=== PATIENT | male | born 1940 | race Caucasian/White ===

== ENCOUNTER 2024-05-10 13:47 | Observation (INO) | payer MEDICARE, OTHER ==
[~2024-05-10] VITALS: Ht 175.3 cm; Wt 100.5 kg
[~2024-05-10 13:47] MED LIST: AMOX TR-K CLV1 EAC1 PO; DOXYCYCLINE HY100 M3 PO; ESTER-C 1,0001 EACH PO; GLIPIZIDE ER10 MG PO; HYDROCHLOROTH12.5 M1 PO; LEXAPRO10 MG PO; LISINOPRIL20 MG PO; LOVASTATIN20 MG PO; METFORMIN HCL500 MG PO; TOPROL XL25 MG PO; [UNRECOGNIZED DRUG - SUPPLY] PO
[2024-05-10] MEDS ORDERED: ACETAMINOPHEN 500 MG TAB PO ONE (14:30)
[2024-05-10] MEDS ORDERED: SODIUM CHLORIDE 0.9% 1,000 ML IV ONE (14:30)
[2024-05-10 14:49] LABS: ALBUMIN 3.3 g/dL (3.4-5.0); ANION GAP 13.9 (7-21); BILIRUBIN, TOTAL 1.5 ng/dL (0.2-1.0); BUN/CREATININE RATIO 10.86 (6.0-28.6); CALCIUM 8.8 mg/dL (8.5-10.1); CREATININE, SERUM 1.84 mg/dL (0.70-1.30); POTASSIUM 4.9 mmol/L (3.5-5.1); PROTEIN, TOTAL 6.6 g/dL (6.4-8.2)
[2024-05-10 14:52] LABS: HEMOGLOBIN 9.6 g/dL (12.0-18.0); MCH 35.8 (27-36); MCHC 33.3 g/dl (30-36); MCV 107.6 fl (81-99); PLATELET COUNT 544 K/uL (140-440); RBC 2.69 M/ul (4.3-5.7); RDW 18.3 (10.5-15.0)
[2024-05-10 15:08] LABS: BILIRUBIN, URINE NEGATIVE (negative); BLOOD/HGB, URINE TRACE-I (Negative); KETONE, URINE NEGATIVE (Negative); LEUK ESTERASE, URINE LARGE (negative); NITRITE, URINE POSITIVE (negative)
[2024-05-10 15:12] LABS: LACTIC ACID, BLOOD 2.7 mmol/L (0.4-2.0)
[2024-05-10] MEDS ORDERED: CEFTRIAXONE/SODIUM CHLORIDE 2 GM/100 ML PIGGYBACK IV ONE (15:15)
[2024-05-10 15:16] LABS: BASOPHILS, MANUAL DIFF 2; EOSINOPHILS, MANUAL DIFF 1; LYMPHOCYTES, MANUAL DIFF 4; MONOCYTES, MANUAL DIFF 12; NEUTROPHILS, MANUAL DIFF 81
[2024-05-10 15:18] LABS: WHITE BLOOD CELLS, URINE 21-40 /HPF (0-5)
[2024-05-10 15:19] LABS: BACTERIA, URINE 3+ /hpf (negative); CASTS, URINE NONE SEEN \\lpf; COLLECTION TYPE, URINE CLEAN CATCH; CRYSTALS, URINE AMORPHOUS URATES 1+ (0-1+); EPITHELIAL CELLS, URINE NONE SEEN /lpf (0-1+); REFLEX CULTURE, URINE Yes (No)
[2024-05-10 15:35] LABS: INFLUENZA B NAA NEGATIVE (NEGATIVE); RESPIRATORY SYNCYTIAL VIR NAA NEGATIVE (NEGATIVE)
[2024-05-10] MEDS ORDERED: SODIUM CHLORIDE 0.9% 1,000 ML IV PRN (15:45)
[2024-05-10] MEDS ORDERED: AZITHROMYCIN 500 MG in DEXTROSE 5% 250 ML IV SCH (16:36)
[2024-05-10] MEDS ORDERED: ENOXAPARIN SODIUM 40 MG/0.4 ML SYR SUB-Q SCH (16:37)
[2024-05-10] MEDS ORDERED: PANTOPRAZOLE SODIUM 40 MG TABEC PO SCH (16:37)
[2024-05-10] MEDS ORDERED: SODIUM CHLORIDE 0.9% 1,000 ML IV SCH (16:45)
[2024-05-10] MEDS ORDERED: DEXTROSE 5% 1,000 ML IV PRN (16:45)
[2024-05-10] MEDS ORDERED: DEXTROSE 50% 50 ML SYR IV PRN ×2 (16:45)
[2024-05-10] MEDS ORDERED: IBLOOD GLUCOSE TEST STRIP 1 EA TEST XX PRN (16:45)
[2024-05-10] MEDS ORDERED: GLUCAGON,HUMAN RECOMBINANT 1 MG/ML VIAL SUB-Q PRN (16:45)
[2024-05-10] MEDS ORDERED: ondansetron HCL 4 MG/2 ML VIAL IV PRN (16:45)
[2024-05-10] MEDS ORDERED: PROCHLORPERAZINE EDISYLATE 10 MG/2 ML VIAL IV PRN (16:45)
[2024-05-10 16:56] VITALS: BP 111/65
[2024-05-10] MEDS ORDERED: INSULIN LISPRO 100 UNIT/ML ML SUB-Q SCH (17:00)
[2024-05-10] MEDS ORDERED: IBLOOD GLUCOSE TEST STRIP 1 EA TEST VI SCH (17:00)
[2024-05-10 18:24] VITALS: BP 107/65
[2024-05-10 20:27] VITALS: BP 120/63
[2024-05-11 01:16] VITALS: BP 113/60
[2024-05-11 05:20] VITALS: BP 117/67
[2024-05-11 05:50] LABS: HEMATOCRIT 26.2 % (35.0-50.0); HEMOGLOBIN 8.9 g/dL (12.0-18.0); MCH 36.6 (27-36); MCV 107.7 fl (81-99); PLATELET COUNT 498 K/uL (140-440); RBC 2.43 M/ul (4.3-5.7); RDW 18.4 (10.5-15.0)
[2024-05-11 05:56] VITALS: BP 117/67
[2024-05-11 05:58] LABS: ALBUMIN 2.7 g/dL (3.4-5.0); ALBUMIN/GLOBULIN RATIO 0.93 (1.1-2.4); ANION GAP 12.4 (7-21); BILIRUBIN, TOTAL 0.6 ng/dL (0.2-1.0); BUN/CREATININE RATIO 10.24 (6.0-28.6); CALCIUM 8.2 mg/dL (8.5-10.1); CREATININE, SERUM 1.66 mg/dL (0.70-1.30); MAGNESIUM 1.9 mg/dL (1.8-2.4); POTASSIUM 4.4 mmol/L (3.5-5.1); PROTEIN, TOTAL 5.6 g/dL (6.4-8.2)
[2024-05-11 06:03] LABS: BANDS, MANUAL DIFF 6; EOSINOPHILS, MANUAL DIFF 2; LYMPHOCYTES, MANUAL DIFF 19; MONOCYTES, MANUAL DIFF 14; NEUTROPHILS, MANUAL DIFF 59
[2024-05-11 09:33] VITALS: BP 120/65
[2024-05-11] MEDS ORDERED: AZITHROMYCIN250 MG PO (09:49)
[2024-05-11] MEDS ORDERED: PHARMACY RENAL DOSE ADJUSTMENT 1 DOSE MISC PO SCH (12:00)
--- NOTE | 2024-05-11 16:27 | EKG ---
[facility] [address] [place], [place] [address] Signed Sinus rhythm with 1st degree AV block Otherwise normal ECG No previous ECGs available Confirmed by LEONARDO TRACEY MD ([id number]) on 05/11/2024 4:27:22 PM Electronically Signed By: LEONARDO TRACEY 05/11/24 1627 PATIENT NAME: MERA SKELTON Electrocardiogram DATE OF : 42 PHYSICIAN: LEONARDO TRACEY REPORT #: [id number] REPORT IS CONFIDENTIAL AND NOT TO BE RELEASED WITHOUT AUTHORIZATION
== END 2024-05-11 11:33 | disposition home or self-care (01) ==
LOC: ED 13:47 → MS 16:30
PROVIDERS: Emergency Medicine; ADMIT Internal Medicine; ATTEND Internal Medicine
DX: R06.02 Shortness of breath (principal); D72.829 Elevated white blood cell count, unspecified; E11.9 Type 2 diabetes mellitus without complications; I10 Essential (primary) hypertension; E78.00 Pure hypercholesterolemia, unspecified; Z87.891 Personal history of nicotine dependence; Z79.84 Long term (current) use of oral hypoglycemic drugs; Z79.899 Other long term (current) drug therapy
CPT/HCPCS: 36415; 71045; 80053; 81001; 83605; 83735; 85025; 87088; 87502; 93005; 93010; A9270; J0456; J0696; J1650; J7030; J7060; U0002